=== PATIENT | female | born 1990 | race Caucasian/White ===

== ENCOUNTER 2019-01-04 16:38 | Outpatient (CLI) | payer MEDICAID ==
[2019-01-04 17:26] LABS: APPEARANCE,URINE SLIGHTLY-CLOUDY; BILIRUBIN,URINE NEGATIVE (NEGATIVE); COLOR,URINE YELLOW; GLUCOSE, URINE NEGATIVE (NEGATIVE); KETONES,URINE NEGATIVE (NEGATIVE); LEUKOCYTE ESTERASE,URINE NEGATIVE (NEGATIVE); NITRITE,URINE NEGATIVE (NEGATIVE); PROTEIN,URINE NEGATIVE (NEGATIVE); URINE SPECIFIC GRAVITY 1.019; UROBILINOGEN,URINE NEGATIVE mg/dL (<2.0)
[2019-01-04 17:40] LABS: UR PRO/CREAT RATIO RESULT 0.1 mg/mg (0.0-0.2); URINE CREATININE 119.4 mg/dL (16-327); URINE PROTEIN 9.1 mg/dL (<12)
[2019-01-04 17:50] LABS: URINE AMPHETAMINES SCREEN NEGATIVE; URINE BARBITURATES SCREEN NEGATIVE; URINE BENZODIAZEPINES SCREEN NEGATIVE; URINE COCAINE SCREEN NEGATIVE; URINE MARIJUANA (THC) SCREEN NEGATIVE; URINE METHADONE SCREEN NEGATIVE; URINE PHENCYCLIDINE SCREEN NEGATIVE
[2019-01-04 18:03] LABS: ABSOLUTE EOSINOPHILS # (AUTO) 0.1 10^3/uL (0.0-0.6); ABSOLUTE LYMPHOCYTES (AUTO) 1.4 10^3/uL (0.5-4.7); ABSOLUTE MONOCYTES (AUTO) 0.6 10^3/uL (0.1-1.4); ABSOLUTE NEUT (AUTO) 6.6 10^3/uL (1.7-8.2); BASOPHILS % (AUTO) 0.1 % (0-2); EOSINOPHILS % (AUTO) 1.3 % (0-6); HEMATOCRIT 28.7 % (36.0-47.0); HEMOGLOBIN 9.6 g/dL (12.0-15.5); LYMPHOCYTES % (AUTO) 15.8 % (13-45); MEAN CORPUSCULAR HEMOGLOBIN 26.2 pg (27.0-33.4); MEAN CORPUSCULAR HGB CONC 33.4 g/dL (32.0-36.0); MEAN CORPUSCULAR VOLUME 79 fl (80-97); MONOCYTES % (AUTO) 7.3 % (3-13); PLATELET COUNT 168 10^3/uL (150-450); RED BLOOD COUNT 3.66 10^6/uL (3.72-5.28); RED CELL DISTRIBUTION WIDTH 17.3 % (11.5-14.0); SEGMENTED NEUTROPHILS % (AUTO) 75.5 % (42-78); TOTAL CELLS COUNTED % (AUTO) 100 %; WHITE BLOOD COUNT 8.8 10^3/uL (4.0-10.5)
[2019-01-04 18:21] LABS: ALANINE AMINOTRANSFERASE 26 U/L (9-52); ALBUMIN 3.3 g/dL (3.5-5.0); ALKALINE PHOSPHATASE 133 U/L (38-126); ANION GAP 8 (5-19); ASPARTATE AMINO TRANSFERASE 18 U/L (14-36); BILIRUBIN,DIRECT 0.2 mg/dL (0.0-0.4); BILIRUBIN,TOTAL 0.4 mg/dL (0.2-1.3); BLOOD UREA NITROGEN 7 mg/dL (7-20); CALCIUM 9.4 mg/dL (8.4-10.2); CARBON DIOXIDE 23 mmol/L (22-30); CHLORIDE 105 mmol/L (98-107); GLUCOSE 75 mg/dL (75-110); POTASSIUM 4.3 mmol/L (3.6-5.0); SODIUM 136.2 mmol/L (137-145); TOTAL PROTEIN 6.3 g/dL (6.3-8.2); URIC ACID 3.6 mg/dL (2.5-6.2)
== END 2019-01-04 18:39 | disposition home or self-care (01) ==
LOC: LC 16:38
PROVIDERS: ATTEND Obstetrics & Gynecology Gynecology
PROC: 4A1HXCZ Monitoring of Products of Conception, Cardiac Rate, External Approach (ICD-10-PCS; principal; 2019-01-04)
DX: O14.93 Unspecified pre-eclampsia, third trimester (principal); Z3A.40 40 weeks gestation of pregnancy
CPT/HCPCS: 36415; 80053; 80307; 81001; 82570; 83615; 84156; 84550; 85025

== ENCOUNTER 2019-01-21 20:00 | Inpatient (IN) | payer MEDICAID ==
[2019-01-21] MEDS ORDERED: DINOPROSTONE 10 MG VAGINAL INSERT.SR PV PRN (20:16)
[2019-01-21] MEDS ORDERED: PENICILLIN G POTASSIUM 5,000,000 UNIT in DEXTROSE 5%-WATER 100 ML IV ONE (20:16)
[2019-01-21] MEDS ORDERED: RINGERS SOLUTION,LACTATED 300 ML IV ONE (20:16)
[2019-01-21] MEDS ORDERED: ACETAMINOPHEN 325 MG TABLET PO PRN (20:19)
[2019-01-21] MEDS ORDERED: MAG HYDROX/AL HYDROX/SIMETH SUSP 30 ML UDCUP PO PRN (20:19)
[2019-01-21] MEDS ORDERED: DINOPROSTONE 10 MG VAGINAL INSERT.SR ONE (21:06)
[2019-01-21] MEDS ORDERED: MISOPROSTOL 0.2 MG TABLET ONE (21:06)
[2019-01-21] MEDS ORDERED: OXYTOCIN 10 UNIT/ML VIAL ONE (21:06)
[2019-01-21] MEDS ORDERED: OXYTOCIN/NORMAL SALINE 20 UNIT/1,000 ML RTUINJ ONE (21:07)
[2019-01-21] MEDS ORDERED: ZOLPIDEM TARTRATE 5 MG TABLET ONE (21:07)
[2019-01-21] MEDS ORDERED: LIDOCAINE 1% INJ-PF (10 MG/ML) 30 ML SDV ONE (21:07)
[2019-01-21] MEDS: ZOLPIDEM TARTRATE 5 MG TABLET PO SCH (21:13)
[2019-01-21 21:25] LABS: APPEARANCE,URINE CLOUDY; BILIRUBIN,URINE NEGATIVE (NEGATIVE); COLOR,URINE YELLOW; GLUCOSE, URINE NEGATIVE (NEGATIVE); KETONES,URINE NEGATIVE (NEGATIVE); LEUKOCYTE ESTERASE,URINE TRACE (NEGATIVE); NITRITE,URINE NEGATIVE (NEGATIVE); PROTEIN,URINE 30 mg/dL (NEGATIVE); URINE SPECIFIC GRAVITY 1.026; UROBILINOGEN,URINE NEGATIVE mg/dL (<2.0)
[2019-01-21 21:32] LABS: URINE AMPHETAMINES SCREEN NEGATIVE; URINE BARBITURATES SCREEN NEGATIVE; URINE BENZODIAZEPINES SCREEN NEGATIVE; URINE COCAINE SCREEN NEGATIVE; URINE MARIJUANA (THC) SCREEN NEGATIVE; URINE METHADONE SCREEN NEGATIVE; URINE PHENCYCLIDINE SCREEN NEGATIVE
[2019-01-21 22:07] LABS: ABSOLUTE EOSINOPHILS # (AUTO) 0.1 10^3/uL (0.0-0.6); ABSOLUTE LYMPHOCYTES (AUTO) 1.8 10^3/uL (0.5-4.7); ABSOLUTE MONOCYTES (AUTO) 0.6 10^3/uL (0.1-1.4); ABSOLUTE NEUT (AUTO) 6.5 10^3/uL (1.7-8.2); BASOPHILS % (AUTO) 0.1 % (0-2); EOSINOPHILS % (AUTO) 1.5 % (0-6); HEMATOCRIT 32.2 % (36.0-47.0); HEMOGLOBIN 10.6 g/dL (12.0-15.5); LYMPHOCYTES % (AUTO) 19.4 % (13-45); MEAN CORPUSCULAR HEMOGLOBIN 27.7 pg (27.0-33.4); MEAN CORPUSCULAR HGB CONC 32.9 g/dL (32.0-36.0); MONOCYTES % (AUTO) 7.1 % (3-13); PLATELET COUNT 147 10^3/uL (150-450); RED BLOOD COUNT 3.83 10^6/uL (3.72-5.28); RED CELL DISTRIBUTION WIDTH 24.7 % (11.5-14.0); SEGMENTED NEUTROPHILS % (AUTO) 71.9 % (42-78); TOTAL CELLS COUNTED % (AUTO) 100 %
[2019-01-21 22:08] LABS: MEAN CORPUSCULAR VOLUME 84 fl (80-97)
[2019-01-21 22:19] LABS: ANISOCYTOSIS 2+
[2019-01-21 22:21] LABS: PLATELET COMMENT DECREASED; TEAR DROP CELLS SLIGHT
--- NOTE | 2019-01-22 07:23 | Admission Physical ---
Datetime Report Generated by CPN: 01/22/2019 07:23 CURRENT ADMISSION Chief Complaint: Scheduled Induction of Labor Indication for Induction: Gestational HTN Admit Impression : Term, Intrauterine ; Induction of Labor Admit Plan: Admit to Unit; Initiate Labor Induction Protocol ALLERGIES Medication Allergies: No Medication Allergies: No Known Allergies (01/04/2019) Latex: No Latex Allergies OBSTETRICAL HISTORY EDC: 01/24/2019 00:00 : 1 Para: 0 Term: 0 : 0 SAB: 0 IAB: 0 Ectopic: 0 Livin Cesareans: 0 VBACs: 0 Multiple Births: 0 Gestational Diabetes: No Rh Sensitization: No Incompetent Cervix: No KIAN: No Infertility: No ART Treatment: No Uterine Anomaly: No IUGR: No Hx Previous C/S: No Macrosomia: No Hx Loss/Stillborn: No PIH: No Hx : No Placenta Previa/Abruption: No Depression/PP Depression: Yes PTL/PROM: No Post Hemorrhage: No Current Procedures: Ultrasound; NST Obstetrical History Comments: 1st - Current SEE RECORDS Alcohol: No Marijuana : No Cocaine: No Other Illicit Drugs: No Cigarettes: Never Smoker. 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 Surgery: No Heart Disease: No Hosp/Surgery: No Autoimmune Disorder: No Anesthetic Complications: No Kidney Disease: No Abnormal Pap Smear: No Neuro/Epilepsy: No Psychiatric Disorders: No Other Medical Diseases: Yes Hepatitis/Liver Disease: No Significant Family History: No Varicosities/Phlebitis: No Trauma/Violence : No Thyroid Dysfunction: Yes Medical History Comments: Scleroderma, depression INFECTIOUS HISTORY Gonorrhea: No Genital Herpes: No Chlamydia: No Tuberculosis: No Syphilis: No Hepatitis: No HIV/AIDS Exposure: No Rash or Viral Illness: No HPV: No PHYSICAL EXAM General: Normal HEENT: Normal Neurologic: Normal Thyroid: Normal Heart: Normal Lungs: Normal Breast: Normal Back: Normal Abdomen: Normal Genitourinary Exam: Normal Extremities: Normal DTRs: Normal Pelvic Type: Adequate Vital Signs: Reviewed Details Vital Signs: consistently elevated VAGINAL EXAM Dilatation: 0 Effacement: 0 Station: -3 MEMBRANES Pooling: Negative Membranes: Intact FETUS A EGA: 39.5 Monitoring: External US FHR- Baseline: 130 Variability: Moderate 6-25bpm Accelerations: 15X15 Decelerations: None FHR Category: Category I Estimated Weight (gm): 3500 Presentation: Vertex PLANS FOR LABOR AND DELIVERY Labor and Delivery: None Pain Management: Medications; Epidural Feeding Preference: Breast Benefit of Breast Feed Discussed: Yes Circumcision: N/A INFORMED CONSENT Signature: with User ID: [email or web address]
[2019-01-22] MEDS ORDERED: PENICILLIN G-K 5 MILLION UNIT VIAL ONE ×3 (10:03→18:06)
[2019-01-22 12:51] LABS: ABSOLUTE LYMPHOCYTES (AUTO) 1.2 10^3/uL (0.5-4.7); ABSOLUTE MONOCYTES (AUTO) 0.5 10^3/uL (0.1-1.4); ABSOLUTE NEUT (AUTO) 7.3 10^3/uL (1.7-8.2); BASOPHILS % (AUTO) 0.3 % (0-2); EOSINOPHILS % (AUTO) 0.5 % (0-6); HEMATOCRIT 32.8 % (36.0-47.0); HEMOGLOBIN 10.9 g/dL (12.0-15.5); MEAN CORPUSCULAR HEMOGLOBIN 27.8 pg (27.0-33.4); MEAN CORPUSCULAR HGB CONC 33.3 g/dL (32.0-36.0); MEAN CORPUSCULAR VOLUME 83 fl (80-97); MONOCYTES % (AUTO) 5.5 % (3-13); PLATELET COUNT 145 10^3/uL (150-450); RED BLOOD COUNT 3.93 10^6/uL (3.72-5.28); RED CELL DISTRIBUTION WIDTH 24.3 % (11.5-14.0); SEGMENTED NEUTROPHILS % (AUTO) 80.7 % (42-78); TOTAL CELLS COUNTED % (AUTO) 100 %; WHITE BLOOD COUNT 9.1 10^3/uL (4.0-10.5)
[2019-01-22 13:11] LABS: ANISOCYTOSIS 3+; OVALOCYTES SLIGHT; PLATELET COMMENT DECREASED; PLATELET LARGE PRESENT; POIKILOCYTOSIS SLIGHT; POLYCHROMASIA SLIGHT
[2019-01-22 13:13] LABS: ALANINE AMINOTRANSFERASE 21 U/L (9-52); ALBUMIN 3.1 g/dL (3.5-5.0); ALKALINE PHOSPHATASE 142 U/L (38-126); ANION GAP 9 (5-19); ASPARTATE AMINO TRANSFERASE 16 U/L (14-36); BILIRUBIN,DIRECT 0.2 mg/dL (0.0-0.4); BILIRUBIN,TOTAL 0.3 mg/dL (0.2-1.3); BLOOD UREA NITROGEN 6 mg/dL (7-20); CALCIUM 9.1 mg/dL (8.4-10.2); CARBON DIOXIDE 20 mmol/L (22-30); CHLORIDE 108 mmol/L (98-107); GLUCOSE 85 mg/dL (75-110); POTASSIUM 4.5 mmol/L (3.6-5.0); SODIUM 137.1 mmol/L (137-145)
[2019-01-22 13:14] LABS: TOTAL PROTEIN 5.9 g/dL (6.3-8.2); URIC ACID 3.6 mg/dL (2.5-6.2)
[2019-01-22] MEDS ORDERED: EPHEDRINE SULFATE INJ 50 MG/1 ML AMPULE ONE ×2 (13:27→18:28)
[2019-01-22] MEDS ORDERED: BUPIVACAINE HCL 0.25 % INJ/PF (2.5 MG/1 ML) 30 ML VIAL ONE (13:28)
[2019-01-22] MEDS ORDERED: FENTANYL/BUPIVACAINE/NS/PF 300 MCG/150 ML RTUINJ EPI ONE (13:28)
[2019-01-22] MEDS: RINGERS SOLUTION,LACTATED 1,000 ML IV PRN (14:11)
[2019-01-22] MEDS ORDERED: CEFAZOLIN 2 GM/D5W RTU 2 GM/50 ML RTUPB IV ONE (18:11)
[2019-01-22] MEDS ORDERED: CITRIC ACID/SODIUM CITRATE ORAL SOLN 15 ML UDCUP ONE (18:11)
[2019-01-22] MEDS ORDERED: LIDOCAINE 2% INJ-PF (20 MG/ML) 10 ML AMPUL ONE ×2 (18:17)
[2019-01-22] MEDS ORDERED: FENTANYL CITRATE INJ/PF 100 MCG/2 ML AMPUL ONE (18:28)
[2019-01-22] MEDS ORDERED: MIDAZOLAM 2 MG/2 ML INJ ONE (18:28)
[2019-01-22] MEDS ORDERED: OXYTOCIN 10 UNIT/ML VIAL ONE (18:28)
[2019-01-22] MEDS ORDERED: OXYTOCIN/NORMAL SALINE 20 UNIT/1,000 ML RTUINJ ONE (18:28)
[2019-01-22] MEDS ORDERED: ONDANSETRON HCL INJ/PF 4 MG/2 ML SDV ONE (18:29)
[2019-01-22] MEDS ORDERED: MEPERIDINE HCL/PF INJ 25 MG/1 ML DISP.SYRIN IV PRN (18:53)
[2019-01-22] MEDS ORDERED: MORPHINE SULFATE 10 MG/ML INJ IV PRN (18:53)
[2019-01-22] MEDS ORDERED: DIPHENHYDRAMINE HCL 50 MG/ML VIAL IV PRN (18:53)
[2019-01-22] MEDS ORDERED: FENTANYL CITRATE INJ/PF 100 MCG/2 ML AMPUL IV PRN ×3 (18:53)
[2019-01-22] MEDS ORDERED: PROMETHAZINE HCL INJ 25 MG/1 ML VIAL IV PRN ×2 (18:53→19:38)
[2019-01-22] MEDS ORDERED: ACETAMINOPHEN 1,000 MG/100 ML RTUPB IV PRN (19:38)
[2019-01-22] MEDS ORDERED: DIPH/PERTUSS(ACELL)/TETANUS VAC/PF 0.5 ML SYR (>=10YO) IM PRN (19:38)
[2019-01-22] MEDS ORDERED: SIMETHICONE 80 MG TAB.CHEW PO PRN (19:38)
[2019-01-22] MEDS ORDERED: ACETAMINOPHEN 325 MG TABLET PO PRN (19:38)
[2019-01-22] MEDS ORDERED: MEASLES,MUMPS&RUBELLA VACC/PF 0.5 ML VIAL SUBCUT PRN (19:38)
[2019-01-22] MEDS ORDERED: OXYTOCIN/NORMAL SALINE 20 UNIT/1,000 ML RTUINJ IV PRN (19:38)
[2019-01-22] MEDS ORDERED: MORPHINE SULFATE 10 MG/ML INJ IM PRN (19:38)
--- NOTE | 2019-01-22 19:54 | OPERATIVE REPORT E ---
Operative Report NAME: JOSH HOWELL : 1990 AGE: 28Y DATE OF SURGERY: 01/22/2019 ROOM: LR200 PREOPERATIVE DIAGNOSIS: INTRAUTERINE AT TERM WITH GESTATIONAL HYPERTENSION. NONREASSURING STRIP. POSTOPERATIVE DIAGNOSIS: INTRAUTERINE AT TERM WITH GESTATIONAL HYPERTENSION. NONREASSURING STRIP. MECONIUM. NUCHAL CORD X1. OPERATION: PRIMARY LOW TRANSVERSE , DELIVERY OF VIABLE FEMALE, APGARS 9-9. ESTIMATED BLOOD LOSS: Less than 600 mL. TISSUE REMOVED: Placenta. SURGEON: Millie JETT M.D. ANESTHESIA: Epidural. PROCEDURE: The patient was placed in supine position and rolled onto the right side. Prepped and draped in sterile fashion. Pfannenstiel incision was made and extended through subcutaneous tissue and fascia. Fascia divided. Rectus muscle bluntly and sharply divided. Parietal peritoneum was entered with sharp dissection. Uterus was nicked in the midline and extended bilaterally. 's head was delivered through the uterine incision. Nose and mouth suctioned with Bovie. Cord was clamped. The was passed from the table. The placenta was manually extracted and the uterus closed in 2 layers, first a running stitch of 0 Vicryl and a second Lembert imbricating the first layer. Hemostasis was noted. The fascia was closed with 0 Vicryl, subcu with interrupted 0 Vicryl, and the skin with subcu absorbable keila. Her urine remained clear throughout the procedure. She was taken to the recovery room in good condition, infant to the nursery in good condition. DICTATING PHYSICIAN: Millie JETT M.D. [id number] PHY#: [id number] ID: [id number] JOB#: [id number] ACCT: [id number] cc:Millie JETT M.D. >
[2019-01-22] MEDS ORDERED: ACETAMINOPHEN 1,000 MG/100 ML RTUPB IV ONE (20:12)
[2019-01-22] MEDS ORDERED: KETOROLAC TROMETHAMINE INJ/PF 30 MG/1 ML SDV ONE (20:12)
[2019-01-22] MEDS: KETOROLAC TROMETHAMINE INJ/PF 30 MG/1 ML SDV IV SCH (21:45)
[2019-01-22] MEDS: ZOLPIDEM TARTRATE 5 MG TABLET PO SCH (22:35)
[2019-01-22] MEDS: PENICILLIN G POTASSIUM 2,500,000 UNIT in DEXTROSE 5%-WATER 50 ML IV SCH (23:08)
[2019-01-23] MEDS: OXYCODONE-ACETAMINOPHEN 5-325 MG TABLET PO PRN ×3 (02:00→20:08)
[2019-01-23] MEDS: RINGERS SOLUTION,LACTATED 1,000 ML IV PRN (02:00)
[2019-01-23] MEDS: KETOROLAC TROMETHAMINE INJ/PF 30 MG/1 ML SDV IV SCH ×3 (06:18→21:03)
[2019-01-23 06:28] LABS: HEMATOCRIT 29.6 % (36.0-47.0); HEMOGLOBIN 9.8 g/dL (12.0-15.5); MEAN CORPUSCULAR HEMOGLOBIN 27.9 pg (27.0-33.4); MEAN CORPUSCULAR HGB CONC 33.1 g/dL (32.0-36.0); MEAN CORPUSCULAR VOLUME 84 fl (80-97); PLATELET COUNT 122 10^3/uL (150-450); RED BLOOD COUNT 3.52 10^6/uL (3.72-5.28); RED CELL DISTRIBUTION WIDTH 24.3 % (11.5-14.0); WHITE BLOOD COUNT 8.8 10^3/uL (4.0-10.5)
--- NOTE | 2019-01-23 09:32 | PDOC PROGRESS REPORT ---
Subjective-OB Progress Note for:: 01/23/19 - POD#1, pt is doing well, s/p Primary for FTP. O+, Physical Exam (OB) Vital Signs: Temp Pulse Resp BP Pulse Ox 98.1 F 100 16 132/83 H 97 01/23/19 07:30 01/23/19 07:30 01/23/19 07:30 01/23/19 07:30 01/23/19 07:30 Intake & Output 01/22/19 01/23/19 01/24/19 06:59 06:59 06:59 Intake Total 1500 Output Total 1800 800 Balance -300 -800 Weight 126 kg - General General Appearance: Appears well, Alert In distress: None - PIH/Pre-Eclampsia Clonus: Negative Headache: Absent Epigastric Pain: No Visual Changes: No - Dressing Removed: No Incision: Dressing - Lochia Lochia Amount: Small 10-25 ml Lochia Color: Serosa/Brown - Abdomen Description: Soft Hernia Present: No Fundal Description: Firm Fundal Height: u/u - u/2 - Respiratory Respiratory Status: No respiratory distress Breath sounds: Clear - Cardiovascular Rhythm: Regular Heart Sounds: Normal auscultation - Abdominal Inspection: Normal Distension: No distension Tenderness: Nontender Abdominal Notes: +Bowel Sounds - Genitourinary Genitourinary Note: [place] cath in place - Extremities Upper extremity: Normal inspection Lower extremities: Normal inspection - Neurological Cognition: Normal Orientation: AAOx4 - Psychological Associated symptoms: Normal affect, Normal mood - Skin Skin Temperature: Warm Skin Moisture: Dry Objective-Diagnostic Laboratory: 01/23/19 05:56 01/22/19 12:40 01/22/19 01/22/19 01/23/19 12:40 12:40 05:56 WBC 9.1 8.8 RBC 3.93 3.52 L Hgb 10.9 L 9.8 L Hct 32.8 L 29.6 L MCV 83 84 MCH 27.8 27.9 MCHC 33.3 33.1 RDW 24.3 H 24.3 H Plt Count 145 L 122 L Seg Neutrophils % 80.7 H Lymphocytes % 13.0 Monocytes % 5.5 Eosinophils % 0.5 Basophils % 0.3 Absolute Neutrophils 7.3 Absolute Lymphocytes 1.2 Absolute Monocytes 0.5 Absolute Eosinophils 0.0 Absolute Basophils 0.0 Sodium 137.1 Potassium 4.5 Chloride 108 H Carbon Dioxide 20 L Anion Gap 9 BUN 6 L Creatinine 0.48 L Est GFR ( Amer) > 60 Est GFR (Non-Af Amer) > 60 Glucose 85 Uric Acid 3.6 Calcium 9.1 Total Bilirubin 0.3 AST 16 ALT 21 Alkaline Phosphatase 142 H Total Protein 5.9 L Albumin 3.1 L Assessment and Plan(PN) - Assessment and Plan (1) delivery delivered Is this a current diagnosis for this admission?: Yes (2) Anemia Qualifiers: Anemia type: iron deficiency Iron deficiency anemia type: inadequate dietary iron intake Qualified Code(s): D50.8 - Other iron deficiency anemias Is this a current diagnosis for this admission?: Yes (3) Gestational hypertension Qualifiers: Trimester: third trimester Qualified Code(s): O13.3 - Gestational [-induced] hypertension without significant proteinuria, third trimester Is this a current diagnosis for this admission?: Yes - Time Spent with Patient Time with patient: Less than 15 minutes Medications reviewed and adjusted accordingly: Yes - Disposition Anticipated Discharge: Home Within: within 48 hours
[2019-01-23] MEDS: FERROUS SULFATE 325 MG TABLET PO SCH (10:07)
[2019-01-23] MEDS: DOCUSATE SODIUM 100 MG CAPSULE PO SCH ×2 (10:07→17:44)
[2019-01-23] MEDS: PRENATAL VITAMIN W DHA CAPSULE PO SCH (10:11)
[2019-01-23] MEDS: ZOLPIDEM TARTRATE 5 MG TABLET PO SCH (21:03)
[2019-01-24] MEDS: IBUPROFEN 800 MG TABLET PO SCH ×5 (00:34→23:20)
[2019-01-24] MEDS: KETOROLAC TROMETHAMINE INJ/PF 30 MG/1 ML SDV IV SCH (06:10)
[2019-01-24] MEDS: OXYCODONE-ACETAMINOPHEN 5-325 MG TABLET PO PRN ×2 (08:14→21:49)
[2019-01-24] MEDS: FERROUS SULFATE 325 MG TABLET PO SCH (09:51)
[2019-01-24] MEDS: DOCUSATE SODIUM 100 MG CAPSULE PO SCH ×2 (09:51→17:20)
[2019-01-24] MEDS: PRENATAL VITAMIN W DHA CAPSULE PO SCH (09:51)
--- NOTE | 2019-01-24 16:27 | PDOC PROGRESS REPORT ---
Subjective-OB Progress Note for:: 01/24/19 Subjective: 28yo G1 now P1 s/p primary PPD2. Pt. ambulating and voiding without difficulty. Reports pain is well tolerated with medication. Denies any concerns. Physical Exam (OB) Vital Signs: Temp Pulse Resp BP Pulse Ox 97.7 F 99 16 143/80 H 98 01/24/19 15:05 01/24/19 15:05 01/24/19 15:05 01/24/19 15:05 01/24/19 15:05 Intake & Output 01/23/19 01/24/19 01/25/19 06:59 06:59 06:59 Intake Total 1500 Output Total 1800 800 Balance -300 -800 Weight 126 kg - General General Appearance: Appears well In distress: None - PIH/Pre-Eclampsia Clonus: Negative Headache: Absent Epigastric Pain: No Visual Changes: No - Dressing Removed: Yes Incision: Well Approximated Closure Type: Surgical Glue - Lochia Lochia Amount: Scant < 10 ml Lochia Color: Serosa/Brown - Abdomen Description: Soft Hernia Present: No Fundal Description: Firm Fundal Height: u/u - u/2 - Respiratory Respiratory Status: No respiratory distress - Extremities Upper extremity: Normal inspection Lower extremities: Normal inspection - Neurological Cognition: Normal Orientation: AAOx4 - Psychological Associated symptoms: Normal affect, Normal mood Objective-Diagnostic Laboratory: 01/23/19 05:56 01/22/19 12:40 Assessment and Plan(PN) - Assessment and Plan (1) delivery delivered Is this a current diagnosis for this admission?: Yes Plan: routine pp care (2) Anemia Qualifiers: Iron deficiency anemia type: unspecified iron deficiency Is this a current diagnosis for this admission?: Yes Plan: increase dietary iron and FeSO4 BID (3) Gestational hypertension Qualifiers: Trimester: third trimester Qualified Code(s): O13.3 - Gestational [-induced] hypertension without significant proteinuria, third trimester Is this a current diagnosis for this admission?: Yes Plan: continue to monitor bps and for s/s of pre-e. Consider antyhypertensives if bp continues to be elevated - Time Spent with Patient Time with patient: Less than 15 minutes Medications reviewed and adjusted accordingly: Yes - Disposition Anticipated Discharge: Home Within: within 24 hours
[2019-01-24] MEDS: ZOLPIDEM TARTRATE 5 MG TABLET PO SCH (22:46)
[2019-01-25] MEDS: IBUPROFEN 800 MG TABLET PO SCH ×2 (05:09→12:05)
[2019-01-25] MEDS: OXYCODONE-ACETAMINOPHEN 5-325 MG TABLET PO PRN (08:10)
[2019-01-25 08:21] VITALS: BP 148/87
[2019-01-25] MEDS: DOCUSATE SODIUM 100 MG CAPSULE PO SCH (10:32)
[2019-01-25] MEDS: FERROUS SULFATE 325 MG TABLET PO SCH (10:32)
[2019-01-25] MEDS: PRENATAL VITAMIN W DHA CAPSULE PO SCH (10:33)
--- NOTE | 2019-01-25 10:38 | PDOC DISCHARGE SUMMARY ---
Final Diagnosis Discharge Date: 01/25/19 - Final Diagnosis (1) delivery delivered Is this a current diagnosis for this admission?: Yes (3) Gestational hypertension Is this a current diagnosis for this admission?: Yes Discharge Data - Discharge Medication Prescriptions: Ibuprofen [Motrin 800 mg Tablet] 800 mg PO Q8HP PRN #60 tablet PRN Reason: Oxycodone HCl/Acetaminophen [Percocet 5-325 mg Tablet] 1 tab PO Q4HP PRN #30 tablet PRN Reason: Sertraline HCl [Zoloft 50 mg Tablet] 50 mg PO DAILY #30 tablet Home Medications: Levothyroxine Sodium [Synthroid 0.05 mg Tablet] 0.05 mg PO DAILY 01/04/19 Vit,Calc76/Iron/Folic [Prenatabs Rx Tablet] 1 tab PO DAILY 01/04/19 Ibuprofen [Motrin 800 mg Tablet] 800 mg PO Q8HP PRN #60 tablet 01/25/19 Oxycodone HCl/Acetaminophen [Percocet 5-325 mg Tablet] 1 tab PO Q4HP PRN #30 tablet 01/25/19 Sertraline HCl [Zoloft 50 mg Tablet] 50 mg PO DAILY #30 tablet 01/25/19 Procedures: NST Intrapartum Procedure(s): : Low Cervical, Transverse - Diagnosis Test Laboratory: Temp Pulse Resp BP Pulse Ox 98.1 F 88 20 148/87 H 98 01/25/19 07:44 01/25/19 07:44 01/25/19 08:19 01/25/19 07:44 01/25/19 07:44 01/21/19 01/21/19 01/21/19 20:10 20:25 21:45 RBC Cancelled 3.83 Hgb Cancelled 10.6 L Hct Cancelled 32.2 L Urine Opiates Screen NEGATIVE 01/22/19 01/23/19 12:40 05:56 RBC 3.93 3.52 L Hgb 10.9 L 9.8 L Hct 32.8 L 29.6 L Urine Opiates Screen - Discharge information/Instructions Discharge Activity: Balance Activity w/Rest, No Lifting Over 10 Pounds, No Lifting/Push/Pulling, Pelvic Rest, No tub bath Discharge Diet: Regular Disposition: HOME, SELF-CARE Follow up with: [facility] in: 1, Weeks
--- NOTE | 2019-01-25 13:03 | Delivery Summary ---
Del Sum A-C Datetime Report Generated by CPN: 01/25/2019 13:03 DELIVERY PERSONNEL DELIVERY PERSONNEL: [id number] Delivery Doctor:: Temo Mckinney MD Delivery Doctor:: Temo Mckinney MD Anesthesiologist:: Shania Benjamin MD Anesthesiologist:: Shania Benjamin MD CAKE WINDER:: Randy Peterson, CAKE WINDER CAKE WINDER:: Randy Peterson CAKE WINDER Labor and Delivery Nurse:: Giuliana Sandy RN Admissions Officer:: Mirela Wiggins RN Admissions Officer:: Mirela Wiggins RN Manager Retirement:: Dr. Aly Link [place] Nurse:: Patito Savage RN Glassware Verifier/LAB AID: [facility] Glassware Verifier/LAB AID: Christy Freed, BALLAST INSPECTOR MATERNAL INFORMATION Delivery Anesthesia: Epidural Medications After Delivery: Pitocin Bolus-Please Comment Meds After Delivery Comment: pitocin 20 units in 1 L NS bolusing per order Maternal Complications: None Provider Comments: meconium and nuchal cord LABOR SUMMARY EDC: 01/24/2019 00:00 No. Babies in Womb: 1 Attempted: No Labor Anesthesia: Epidural LABOR INFORMATION Reason for Induction: Gestational Hypertension Onset of Labor: 01/22/2019 12:00 Oxytocin: N/A Group B Beta Strep: Positive Antibiotics # of Doses: 2 Antibiotics Time of Last Dose: 1405 Name of Antibiotic Given: PCN Steroids Given: None Reason Steroids Not Administered: Not Applicable MEMBRANES Membranes Rupture Method: Artificial Rupture of Membranes: 01/22/2019 14:46 Length of Rupture (hr): 4.52 Amniotic Fluid Color: Moderate Meconium Amniotic Fluid Amount: Small Amniotic Fluid Odor: Normal STAGES OF LABOR Stage 3 hr: 0 Stage 3 min: 1 Total Time in Labor hr: 7 Total Time in Labor min: 18 VAGINAL DELIVERY Episiotomy: None Laceration #1: None Laceration Extension #1: N/A Laceration Repair: Not Applicable Sponge Count Correct: N/A Sharps Count Correct: N/A CSECTION DELIVERY Primary Indication: Nonreassuring Status Secondary Indication: Failure of Descent CSection Urgency: Non-Scheduled CSection Incidence: Primary Labor: Labor Elective: N/A CSection Incision: Lower Uterine Transverse BABY A INFORMATION Delivery Date/Time: 01/22/2019 19:17 Method of Delivery: Born in Route : No : N/A Forceps: N/A Vacuum Extraction: N/A Shoulder Dystocia : No PRESENTATION/POSITION BABY A Presentation: Cephalic Cephalic Presentation: Vertex Breech Presentation: N/A PLACENTA INFORMATION BABY A Placenta Delivery Time : 01/22/2019 19:18 Placenta Method of Delivery: Manual Removal Placenta Status: Delivered SCORES BABY A Heart Rate 1 min: >100 bpm Resp Effort 1 min: Good Cry Reflex Irritability 1 min: Cough or Sneeze or Pulls Away Muscle Tone 1 min: Active Motion Color 1 min: Body Reeder, Extremities Blue SCORE 1 MIN: 9 Heart Rate 5 min: >100 bpm Resp Effort 5 min: Good Cry Reflex Irritability 5 min: Cough or Sneeze or Pulls Away Muscle Tone 5 min: Active Motion Color 5 min: Body Reeder, Extremities Blue SCORE 5 MIN: 9 INFORMATION BABY A Gestational Age at Delivery: 39.5 Gestational Status: Full Term- 39- 40.6 Weeks Infant Outcome : Liveborn Condition : Stable Sex: Female IDENTIFICATION BABY A Infant Verification Date/Time: 01/22/2019 19:20 ID Band Number: [id number] Mother's Name Verified: Yes Infant RN Verifying Infant: CQuintin Ramirezck, RN A. Angeer, RN WEIGHT/LENGTH BABY A Infant Birthweight (gm): 2950 Infant Weight (lb): 6 Infant Weight (oz): 8 Infant Length (in): 19.75 Length (cm): 50.17 CORD INFORMATION BABY A No. Cord Vessels: 3 Nuchal Cord : Around Neck x1, Tight Nuchal Cord- Other: BODY CORD Suction: Mouth; Nose ASSESSMENT BABY A Infant Complications: Extended Bradycardia Physical Findings at Delivery: Other Physical Findings- Other: covered in meconium Skin to Skin: Yes Skin to Skin: No Transferred To: [facility] BABY B INFORMATION : N/A SIGNATURES Signature: with User ID: [email or web address]
== END 2019-01-25 13:20 | disposition home or self-care (01) | DRG 788 ==
LOC: LR 20:00 → 2S 01-22 21:31
PROVIDERS: ADMIT Obstetrics & Gynecology Gynecology; ATTEND Obstetrics & Gynecology Gynecology
PROC: 10D00Z1 Extraction of Products of Conception, Low, Open Approach (ICD-10-PCS; principal; 2019-01-22)
DX: O13.4 Gestational [pregnancy-induced] hypertension without significant proteinuria, complicating childbirth (principal); O77.0 Labor and delivery complicated by meconium in amniotic fluid; O76 Abnormality in fetal heart rate and rhythm complicating labor and delivery; O99.02 Anemia complicating childbirth; D50.9 Iron deficiency anemia, unspecified; O99.824 Streptococcus B carrier state complicating childbirth; O32.4XX0 Maternal care for high head at term, not applicable or unspecified; O69.1XX0 Labor and delivery complicated by cord around neck, with compression, not applicable or unspecified; O69.2XX0 Labor and delivery complicated by other cord entanglement, with compression, not applicable or unspecified; O75.89 Other specified complications of labor and delivery; M34.9 Systemic sclerosis, unspecified; O99.284 Endocrine, nutritional and metabolic diseases complicating childbirth; E07.9 Disorder of thyroid, unspecified; O99.344 Other mental disorders complicating childbirth; F32.9 Major depressive disorder, single episode, unspecified; O99.214 Obesity complicating childbirth; Z3A.39 39 weeks gestation of pregnancy; Z37.0 Single live birth
CPT/HCPCS: 1961; 36415; 80053; 80307; 81001; 83615; 84550; 85025; 85027; 86235; 86592; 86850; 86900; 86901; 88307; 94760; 94799; J0131; J0690; J1885; J2250; J2405; J2540; J2590; J3010; J3490; J7060; J7120

== ENCOUNTER 2020-01-30 01:57 | Emergency (ER) | payer MEDICAID ==
[2020-01-30] MEDS ORDERED: FAMOTIDINE 20 MG TABLET PO ONE (03:38)
[2020-01-30] MEDS ORDERED: PREDNISONE 20 MG TABLET PO ONE (03:38)
[2020-01-30] MEDS ORDERED: DIPHENHYDRAMINE HCL 25 MG CAPSULE PO ONE (03:38)
--- NOTE | 2020-01-30 03:45 | ER Document Report ---
ED General - General Chief Complaint: Swelling Stated Complaint: HAND SWELLING Time Seen by Provider: 01/30/20 03:10 Primary Care Provider: RUTHANN CALDERÓN MD [ACTIVE STAFF] - Follow up as needed TRAVEL OUTSIDE OF THE [place] IN LAST 30 DAYS: No - HPI Patient complains to provider of: Bilateral hand swelling Context: 29-year-old female with a history of eczema and hypothyroidism presents to the emergency department for evaluation of bilateral hand swelling for the past 2 days. Patient denies prior history of latex allergy. Patient states that she has eczema on her hands and decided to wash the dishes at home while wearing rubber gloves for the past 2 days. Patient has noted that both of her hands have become swollen, itchy and painful. Patient used a telemedicine service to have her hand problem addressed. During the course of the interview, the patient mentioned she had a swollen lymph node. The patient states that she was instructed to have her thyroid evaluated as soon as possible because of the possibility of an acute thyroid disorder. Patient states that she has been quite anxious since the telemedicine interview and has been worried about her thyroid and the possibility of severe thyroid disease. Patient states she was unable to sleep because of her anxiety and decided to come to the emergency department to get evaluated. - Related Data Allergies/Adverse Reactions: No Known Allergies Allergy (Verified 01/30/20 02:41) Home Medications: SYNTHROID, ZOLOFT, ADDERAL Past Medical History - General Information source: Patient - Social History Smoking Status: Current Every Day Smoker Frequency of alcohol use: None Drug Abuse: None Family History: Reviewed & Not Pertinent Patient has homicidal ideation: No Endocrine Medical History: Reports: Hx Hypothyroidism Review of Systems - Review of Systems Constitutional: No symptoms reported EENT: Other - Lymph node swelling Cardiovascular: No symptoms reported Respiratory: No symptoms reported Gastrointestinal: No symptoms reported Genitourinary: No symptoms reported Female Genitourinary: No symptoms reported Musculoskeletal: No symptoms reported Skin: Other - Bilateral hand swelling and redness Hematologic/Lymphatic: Enlarged lymph nodes Neurological/Psychological: No symptoms reported -: Yes All other systems reviewed and negative Physical Exam - Vital signs Vitals: Temp 98.9 F 01/30/20 01:58 - Notes Notes: CONSTITUTIONAL [Vital signs reviewed, Patient appears comfortable, Alert and oriented X 3, Normal stature.] HEAD [Atraumatic, Normocephalic.] EYES [Eyes are normal to inspection, No discharge from eyes, Extraocular muscles intact, Sclera are normal, Conjunctiva are normal.] NECK [Normal ROM, No jugular venous distention, No meningeal signs, no carotid bruit. Palpation of the thyroid reveals no evidence of nodules or enlargement. See lymphatic exam below] UPPER EXTREMITY Upper extremity exam is significant for diffuse bilateral hand swelling and erythema. Erythema is macular and blanching. LOWER EXTREMITY [Inspection normal, No cyanosis, No clubbing, No edema, No calf tenderness, 2+ femoral pulses.] NEURO [No focal motor deficits, No focal sensory deficits, Speech normal.] SKIN [Skin exam is significant for bilateral hand edema and erythema.] LYMPHATIC Patient has a mobile, solitary, enlarged sub-mental lymph node underneath the right side of her jaw..] PSYCHIATRIC [Normal affect. ] Course - Re-evaluation Re-evalutation: 01/30/20 03:48 Diagnosis and plan of care discussed with patient. All questions were answered prior to discharge. Patient states she is very relieved to find that there seems to be no obvious evidence of problems with her thyroid on physical exam. Emergency signs and symptoms, reasons to return to the emergency department discussed with patient. - Vital Signs Vital signs: Temp Pulse Resp BP Pulse Ox 98.9 F 96 15 130/88 H 98 01/30/20 02:41 01/30/20 02:41 01/30/20 02:41 01/30/20 02:41 01/30/20 02:41 Discharge - Discharge Clinical Impression: Contact dermatitis Qualifiers: Contact dermatitis type: unspecified Contact dermatitis trigger: unspecified trigger Qualified Code(s): L25.9 - Unspecified contact dermatitis, unspecified cause Condition: Good Disposition: HOME, SELF-CARE Additional Instructions: Return to the Emergency Department without delay if any worse. You have been diagnosed with contact dermatitis. This is caused when the skin comes into contact with an irritant. Different irritants include latex and other chemical products. It is recommended that she stop using the gloves you have been using 2 wash dishes as this is the suspected cause of your hand swelling. You are being given a dose of prednisone prior to discharge to help with your redness and itching in your hands. You are going to be prescribed prednisone for a few more days to continue helping reduce the itching and swelling in your hands. You can also use [id number] antihistamine such as Zyrtec, Claritin or Benadryl. Benadryl can make you sleepy so it is recommended that she do not take it when you need to be alert. You have also been found to have an isolated swollen lymph node. This finding in and of itself is nothing to be concerned about. If you find that the lymph node swelling lasts more than a week or becomes more significantly swollen or painful, you should follow-up with your primary care provider to be reevaluated. There is no evidence of any obvious thyroid abnormality on physical exam here today in the emergency department. Specifically, your thyroid gland does not feel abnormal in size and there seemed to be no associated masses or other irregular findings on exam. HOME CARE INSTRUCTIONS & INFORMATION: Thank you for choosing us for your medical needs. We hope you're satisfied with the care you received. After you leave, you must properly care for your problem and, at the same time, observe its progress. Any condition can change. Some illnesses can change rapidly over hours or days. If your condition worsens, return to the Emergency Department or see your physician promptly. ABOUT YOUR X-RAYS AND EKG'S: If you had an EKG or X-rays taken, they have been read by the Emergency Physician. The X-rays and EKG's will also be read by a Radiologist or Kier Boiler within 24 hours. If discrepancies are noted, you will be notified by telephone. Please be certain the ED has a correct telephone number & address where you can be reached. Also, realize that some fractures or abnormalities do not show up on initial X-rays. If your symptoms continue, see your physician. ABOUT YOUR LABORATORY TEST: If you had laboratory tests, the results have been reviewed by the Emergency Physician. Some test results (for example cultures) may not be available for several days. You will be contacted if any test result shows you need additional treatment. Please be certain the ED has a correct telephone number and address where you can be reached. ABOUT YOUR MEDICATIONS: You will receive instructions on how to take your medicine on the prescription label you receive. Additional information may be provided by the Pharmacy. If you have questions afterwards, call the ED for clarification or further instructions. Some prescribed medications may cause drowsiness. Do not perform tasks such as driving a car or operating machinery without consulting your Pharmacist. If you feel you need a refill of pain medication, your condition will need re-evaluation. Please do not call for a refill of any medication. ABOUT YOUR SIGNATURE: Signature of this document acknowledges to followin. Understanding that you received emergency treatment and that you may be released before al medical problems are known or treated. Please be certain the ED has a correct phone number & address where you can be reached. 2. Acknowledgement that you will arrange for follow-up care as recommended. 3. Authorization for the Emergency Physician to provide information to your follow-up Physician in order to maximize your care. AT ANY TIME, IF YOUR SYMPTOMS CHANGE SIGNIFICANTLY OR WORSEN OR YOU DEVELOP NEW SYMPTOMS, RETURN TO THE EMERGENCY DEPARTMENT IMMEDIATELY FOR RE-EVALUATION. OUR GOAL IS TO PROVIDE EXCELLENT MEDICAL CARE! WE HOPE THAT WE HAVE MET YOUR EXPECTATIONS DURING YOUR EMERGENCY DEPARTMENT VISIT AND THAT YOU FEEL YOU HAVE RECEIVED EXCELLENT CARE! Prescriptions: Prednisone [Deltasone 10 mg Tablet] 10 mg PO ASDIR PRN #21 tablet PRN Reason: Referrals: RUTHANN CALDERÓN MD [ACTIVE STAFF] - Follow up as needed
[2020-01-30 04:04] VITALS: BP 132/70
== END 2020-01-30 04:02 | disposition home or self-care (01) ==
LOC: ER 01:57
DX: L25.9 Unspecified contact dermatitis, unspecified cause (principal); M79.89 Other specified soft tissue disorders; M79.641 Pain in right hand; M79.642 Pain in left hand; Z79.899 Other long term (current) drug therapy; F41.9 Anxiety disorder, unspecified; F17.200 Nicotine dependence, unspecified, uncomplicated
CPT/HCPCS: 99283; J3490 ×2; J7512